=== PATIENT | female | born 1995 | race Two or more races ===

== ENCOUNTER 2016-11-07 15:58 | Emergency (ER) | payer SELFPAY ==
[~2016-11-07] VITALS: Ht 157.5 cm; Wt 65.8 kg
[2016-11-07 16:14] VITALS: BP 104/65
[2016-11-07] MEDS ORDERED: IBUP400T18 PO (16:55)
--- NOTE | 2016-11-07 16:55 | PHYS DOC ---
Past History Past Medical History: No Pertinent History Past Surgical History: Other Alcohol Use: None Drug Use: None Adult General Chief Complaint Chief Complaint: KNEE INJURY HPI HPI 21-year-old female presenting to the emergency department today with left knee pain. The pain is been present for more than 2 weeks. It is a throbbing moderate pain worse with walking and improved with rest. She denies any recent traumatic injury to the knee. Review of systems is negative for numbness weakness or tingling. She denies chest pain or hip pain. All other review of systems is negative unless otherwise noted in history of present illness. ED course: 21-year-old female presenting to the emergency department with left knee pain. X-rays obtained which were unremarkable. The patient was then discharged home in stable condition to follow up with their primary care physician over the next 2-3 days. They were to return if their symptoms worsened or if they were concerned for any reason. [id number] discharge instructions and return precautions were given. Patient's questions were answered to their satisfaction. Patient is comfortable plan. Review of Systems Review of Systems See above Allergies Allergies Allergies Coded Allergies Type Severity Reaction Last Updated Verified No Known Drug Allergies 11/07/16 No Physical Exam Physical Exam Constitutional: Well developed, well nourished, no acute distress, non-toxic appearance. [] HENT: Normocephalic, atraumatic, bilateral external ears normal, oropharynx moist, no oral exudates, nose normal. [] Eyes: PERRLA, EOMI, conjunctiva normal, no discharge. [] Neck: Normal range of motion, no tenderness, supple, no stridor. [] Cardiovascular:Heart rate regular rhythm, no murmur [] Lungs & Thorax: Bilateral breath sounds clear to auscultation [] Abdomen: Bowel sounds normal, soft, no tenderness, no masses, no pulsatile masses. [] Skin: Warm, dry, no erythema, no rash. [] Back: No tenderness, no CVA tenderness. [] Extremities: No tenderness, no cyanosis, no clubbing, ROM intact, no edema. [] The patient's left knee has no swelling. There are no ecchymosis lacerations abrasions or evidence of trauma. Mild tenderness on the medial aspect of the patient's knee. Normal Vandana's test. Normal posterior and anterior drawer chest. Negative Paula's test. Neurovascularly intact distally. 2 second cap refill. Neurologic: Alert and oriented X 3, normal motor function, normal sensory function, no focal deficits noted. [] Psychologic: Affect normal, judgement normal, mood normal. [] Current Patient Data Vital Signs Vital Signs Date Time Temp Pulse Resp B/P (MAP) Pulse Ox O2 Delivery O2 Flow Rate FiO2 11/07/16 16:14 98.5 67 16 96 Room Air EKG EKG [] Radiology/Procedures Radiology/Procedures [] Course & Med Decision Making Course & Med Decision Making Pertinent Labs and Imaging studies reviewed. (See chart for details) [] Dragon Disclaimer Dragon Disclaimer This chart was dictated in whole or in part using Voice Recognition software in a busy, high-work load, and often noisy Emergency Department environment. It may contain unintended and wholly unrecognized errors or omissions. Departure Departure: Impression: Primary Impression: Left knee pain Disposition: HOME, SELF-CARE Condition: STABLE Referrals: [facility] (PCP) Patient Instructions: Knee Pain Additional Instructions: Thank you for allowing us to participate in your care today. Followup with your primary care physician in 3 days if your symptoms do not improve. Call your Primary Doctor tomorrow and inform them of your visit today. If you do not have a primary care provider you can ask for a list of our primary care providers. Return to the emergency department you have any new or concerning findings. This should be evaluated by the primary care physician and any necessary consulting services for continued management within a few days after discharge. Return to emergency room if you have any new or concerning symptoms including but not limited to fever, chills, nausea, vomiting, intractable pain, any new rashes, chest pain, shortness of air, uncontrolled bleeding, difficulty breathing, and/or vision loss. Scripts Ibuprofen (IBUPROFEN) 400 Mg Tablet 1 TAB PO PRN Q8HRS Y for PAIN, #20 TAB Prov: RADHA DOMINGUEZ MD 11/07/16 RADHA DOMINGUEZ MD Nov 07, 2016 16:55
--- NOTE | 2016-11-07 17:22 | RAD ---
Left knee, 3 views, 11/07/2016: History: Knee pain No fracture or dislocation is identified. No significant arthritic change is seen. IMPRESSION: No acute bony abnormality is detected.
== END 2016-11-07 17:42 | disposition home or self-care (01) ==
LOC: ER 15:58
DX: M25.562 Pain in left knee (principal)
CPT/HCPCS: 73562; 81025; 99284